=== PATIENT | male | born 1990 | race Caucasian/White ===

== ENCOUNTER 2021-10-20 12:09 | Emergency (ER) | payer OTHER, SELFPAY ==
[2021-10-20] VITALS (14 sets, daily range): BP systolic 105–150; BP diastolic 56–74; PULSE 105–121; RESP 22–23; TEMP 35.9; O2SAT 86–93; BMI 47.1
--- NOTE | 2021-10-20 12:25 | DI.RAD.S_ITS ---
PROCEDURE: XR CHEST 1V INDICATIONS: COVID + = Shortness of Breath TECHNIQUE: One view of the chest was acquired. COMPARISON: None. FINDINGS: Surgical changes and devices: None. Lungs and pleura: Abnormal interstitial type infiltrates are seen. These are seen primarily centrally. Low lung volumes are noted. This causes a crowded appearance to the lung markings and limits evaluation. No large pneumothorax or large pleural effusions are seen. Mediastinum: Mediastinal contours appear normal. Heart size is normal. Bones and chest wall: No suspicious bony lesions. Overlying soft tissues appear unremarkable. IMPRESSION: Abnormal interstitial type infiltrates are seen. Given the history of COVID positivity, this is most likely related to COVID pneumonia. However, these infiltrates are more centrally distributed than normally seen in COVID pneumonia. Please consider additional causes, including other sources atypical pneumonia and fluid overload. Dictated by: Jessee Trent M.D. on 10/20/2021 at 11:46 Approved by: Jessee Trent M.D. on 10/20/2021 at 11:48
--- NOTE | 2021-10-20 12:29 | ED.SOB ---
HPI - SOB/Dyspnea <Jacobo Rudd PA-C - Last Filed: 10/20/21 14:55> General Chief Complaint: Upper Respiratory Symptoms Stated Complaint: COVID+, Fever,Not Getting Better Time Seen by Provider: 10/20/21 12:16 History of Present Illness HPI Narrative: Patient presents to the emergency room complaining of shortness of breath with any activity. He reports that he had a recent exposure to COVID. All of the people that he came in contact with tested positive for COVID. This exposure was approximately 2 weeks ago. He has been having fever shortness of breath body aches fatigue for the past week. His spouse has been having the same symptoms but her symptoms have resolved. He continues to have shortness of breath with activity and fatigue. He has never been tested for COVID he is non vaccinated and presents for evaluation and checkup. Patient reports that he becomes nauseated with increased activity but denies any vomiting or diarrhea. He has had decreased p.o. intake of food however has maintained adequate hydration. He denies any past medical history and he denies taking any medications. 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 He also reports an occasional cough that is nonproductive that increases with activity. Related Data Previous Rx's Medication Instructions Recorded prednisolone 5 mg tablet 5 mg PO TID #14 tab 10/20/21 ([facility]) Review of Systems <Jacobo Rudd PA-C - Last Filed: 10/20/21 14:55> Review of Systems ROS Unobtainable: All systems reviewed & are unremarkable except as noted in HPI and below Constitutional Constitutional: Reports body ache(s), Denies chills, Reports fatigue, Reports fever(s), Denies frequent falls and Reports weakness Eyes Eyes: Denies change in vision, Denies eye discharge, Denies irritation and Denies loss of vision ENT Ears, Nose, Mouth, and Throat: Denies change in voice, Denies dizziness, Denies neck pain, Denies sore throat and Denies throat swelling Cardiovascular Cardiovascular: Denies chest pain, Denies irregular heart rhythm, Denies lightheadedness, Denies palpitations, Reports dyspnea, Reports dyspnea on exertion and Denies orthopnea Respiratory Respiratory: Reports cough, Reports dyspnea, Reports dyspnea on exertion and Denies wheezing Gastrointestinal Gastrointestinal: Denies abdominal pain, Denies change in bowel habits, Denies diarrhea, Reports nausea and Denies vomiting Genitourinary Genitourinary: Denies hematuria, Denies flank pain, Denies urinary incontinence and Denies urinary urgency Musculoskeletal Musculoskeletal: Denies back pain, Denies muscle weakness, Denies neck pain, Denies numbness and Denies tingling Integumentary/Breasts Skin/Breast: Denies pruritus, Denies erythema, Denies rash and Denies wounds Neurologic Neurologic: Denies behavioral changes, Denies confusion, Denies dizziness, Denies frequent falls, Denies loss of vision, Denies numbness, Denies tingling and Reports weakness Psychiatric Psychiatric: Denies anxiety, Denies behavioral changes, Denies confusion, Denies depression, Denies homicidal ideation and Denies suicidal ideation Endocrine Endocrine: Reports fatigue, Denies flushing and Denies palpitations Hematologic/Lymphatic Hematologic/Lymphatic: Denies easy bruising Allergic/Immunologic Allergic/Immunologic: Denies urticaria, Denies throat swelling and Denies wheezing Patient History <Jacobo Rudd PA-C - Last Filed: 10/20/21 14:55> Social History Smoking Status: Current some day smoker Exam <Jacobo Rudd PA-C - Last Filed: 10/20/21 14:55> Initial Vital Signs Initial Vital Signs: Vital Signs Pulse Rate 121 H 10/20/21 12:19 Pulse Oximetry 92 10/20/21 12:19 Const General: cooperative, healthy appearing and well groomed Nutritional Appearance: obese Orientation: Orientation [facility] Head: normal to inspection, normocephalic and atraumatic Ears: external ears normal Nose: external nose normal and nares normal Face and sinus: normal facial exam, sinuses nontender and face symmetric Mouth: oral mucosae normal, lip normal, tongue normal and oropharynx normal Teeth and gingiva: dentition normal Throat: posterior oropharynx normal Eyes General: appearance normal, both eyes and all related structures Pupils: PERRL Neck Neck: full ROM Resp Effort & Inspection: able to speak in complete sentences and cough Auscultation: diminished lung sounds on the left in the lower lung carroll Cardio Palpation: normal PMI Rate: regular rate Rhythm: regular rhythm GI Inspection: normal to inspection Palpation: soft and no hepatosplenomegaly Percussion: normal to percussion Auscultation: normal bowel sounds Skin General: no rashes or lesions noted Neuro General: patient alert, patient awake and patient oriented x3 Cranial Nerves: CN's II-XI intact bilaterally Cognition: normal cognition Speech: speech normal Gait: normal gait Psych Mental Status: mental status grossly normal <Luli Rowan MD - Last Filed: 10/20/21 18:16> Initial Vital Signs Initial Vital Signs: Vital Signs Pulse Rate 121 H 10/20/21 12:19 Pulse Oximetry 92 10/20/21 12:19 Course <Jacobo Rudd PA-C - Last Filed: 10/20/21 14:55> Course Course Narrative: Patient was evaluated for ongoing respiratory distress secondary to a possible COVID exposure. Patient was found to be positive for COVID chest x-ray shows evidence of a centralized pneumonia likely related as result of COVID. Patient is requiring O2 via nasal cannula 2 L to maintain adequate saturations. A discussion was made regarding admission for his COVID related symptoms versus outpatient treatment. Explained to him the requirements for O2 makes him a good candidate for admission for continued COVID related treatments not available for outpatient. After his discussion with his spouse he came to the decision that he would prefer to be discharged home with care done via outpatient. Orders Ordered: ED Orders 10/20/21 12:25 CXR [XR chest 1V] Stat 10/20/21 12:35 CBC Auto Diff [Complete Blood Count AUTO DIFF] Stat 10/20/21 12:37 COVID19 - ADMIT (DIRECTOR OF LABOR AND DELIVERY swab/PCR) Stat Influenza A & B (PCR) Stat 10/20/21 13:25 CMP [Comprehensive Metabolic Panel] Stat Discontinued Medications Sodium Chloride (Normal Saline 0.9%) 500 mls @ 1,000 mls/hr IV BOLUS ONE Stop: 10/20/21 12:54 Last Infusion: 10/20/21 13:22 Dose: 0 mls/hr Documented by: Admin: 10/20/21 12:35 Dose: 1,000 mls/hr Documented by: CAMRYN Reevaluation(s) Reevaluation #1: Patient stable maintaining adequate oxygenation on nasal cannula via 2 L. patient had questions about treatment options all questions concerns were addressed. Patient speaking with spouse regarding treatment options to admit or be discharged home. Vital Signs Vital signs: Vital Signs - 8 hr 10/20/21 12:19 10/20/21 12:26 10/20/21 12:30 Temperature 96.6 F L Pulse Rate 121 H 120 H 119 H Respiratory Rate 22 Blood Pressure 107/63 107/63 Pulse Oximetry 92 88 L 93 10/20/21 12:32 10/20/21 12:47 10/20/21 13:00 Temperature Pulse Rate 116 H 118 H Respiratory Rate Blood Pressure 128/59 L 130/59 L Pulse Oximetry 93 91 86 L 10/20/21 13:30 10/20/21 13:31 10/20/21 14:00 Temperature Pulse Rate 115 H 108 H 111 H Respiratory Rate 22 Blood Pressure 138/63 Pulse Oximetry 92 92 92 10/20/21 14:01 10/20/21 14:30 10/20/21 15:00 Temperature Pulse Rate 112 H 110 H 110 H Respiratory Rate 23 Blood Pressure 150/74 H Pulse Oximetry 92 92 92 10/20/21 15:01 10/20/21 15:30 Temperature Pulse Rate 109 H 105 H Respiratory Rate 23 22 Blood Pressure 105/56 L Pulse Oximetry 91 92 <Luli Rowan MD - Last Filed: 10/20/21 18:16> Orders Ordered: ED Orders 10/20/21 12:25 CXR [XR chest 1V] Stat 10/20/21 12:35 CBC Auto Diff [Complete Blood Count AUTO DIFF] Stat 10/20/21 12:37 COVID19 - ADMIT (DIRECTOR OF LABOR AND DELIVERY swab/PCR) Stat Influenza A & B (PCR) Stat 10/20/21 13:25 CMP [Comprehensive Metabolic Panel] Stat Discontinued Medications Sodium Chloride (Normal Saline 0.9%) 500 mls @ 1,000 mls/hr IV BOLUS ONE Stop: 10/20/21 12:54 Last Infusion: 10/20/21 13:22 Dose: 0 mls/hr Documented by: Admin: 10/20/21 12:35 Dose: 1,000 mls/hr Documented by: CAMRYN Vital Signs Vital signs: Vital Signs - 8 hr 10/20/21 12:19 10/20/21 12:26 10/20/21 12:30 Temperature 96.6 F L Pulse Rate 121 H 120 H 119 H Respiratory Rate 22 Blood Pressure 107/63 107/63 Pulse Oximetry 92 88 L 93 10/20/21 12:32 10/20/21 12:47 10/20/21 13:00 Temperature Pulse Rate 116 H 118 H Respiratory Rate Blood Pressure 128/59 L 130/59 L Pulse Oximetry 93 91 86 L 10/20/21 13:30 10/20/21 13:31 10/20/21 14:00 Temperature Pulse Rate 115 H 108 H 111 H Respiratory Rate 22 Blood Pressure 138/63 Pulse Oximetry 92 92 92 10/20/21 14:01 10/20/21 14:30 10/20/21 15:00 Temperature Pulse Rate 112 H 110 H 110 H Respiratory Rate 23 Blood Pressure 150/74 H Pulse Oximetry 92 92 92 10/20/21 15:01 10/20/21 15:30 Temperature Pulse Rate 109 H 105 H Respiratory Rate 23 22 Blood Pressure 105/56 L Pulse Oximetry 91 92 MDM - SOB/Dyspnea <Jacobo Rudd PA-C - Last Filed: 10/20/21 14:55> Differential Diagnosis Differential diagnosis: Likely other Lab Data Result diagrams: 10/20/21 12:35 10/20/21 13:25 Labs: Lab Results 10/20/21 10/20/21 10/20/21 Range/Units 12:35 12:37 13:25 WBC 3.4 L (4.5-11.0) X10^3/uL RBC 5.09 (4.5-5.9) X10^6/uL Hgb 13.8 (13.5-17.5) g/dL Hct 40.4 L (41-53) % MCV 79.5 L (80-100) fL MCH 27.1 (26-34) PG MCHC 34.1 (30-36) % RDW 14.4 (11.6-14.8) % Plt Count 211 (150-400) X10^3/uL Neut % (Auto) 64.1 (50-75) % Lymph % (Auto) 26.7 (25-40) % [place] % (Auto) 8.7 (3-14) % Eos % (Auto) 0.0 L (2-4) % Baso % (Auto) 0.5 (0-2) % Neut # (Auto) 2200 (0615-9806) /uL Lymph # (Auto) 900 L (9710-2602) /uL [place] # (Auto) 300 (0-900) /uL Eos # (Auto) 0 (0-450) /uL Baso # (Auto) 0 (0-100) /uL Sodium 131 L (137-145) mmol/L Potassium 3.7 (3.4-5.1) mmol/L Chloride 94 L (98-107) mmol/L Carbon Dioxide 31 (22-32) mmol/L BUN 17 (9-20) mg/dL Creatinine 0.66 (0.66-1.25) mg/dL Estimated GFR > 60.0 (>60) mL/min BUN/Creatinine Ratio 25.8 H (6-22) Glucose 111 H (70-100) mg/dL Calcium 8.3 L (8.4-10.2) mg/dL Total Bilirubin 0.5 (0.2-1.3) mg/dL AST 74 H (17-59) IU/L ALT 35 (<50) IU/L Alkaline Phosphatase 52 (38-126) U/L Total Protein 7.0 (6.3-8.2) g/dL Albumin 3.9 (3.5-5.0) g/dL Globulin 3.1 (1.7-4.1) g/dL Albumin/Globulin Ratio 1.3 (1.0-2.8) SARS-CoV-2 (PCR) Positive H (Negative) Influenza A (RT-PCR) Flu a negative (NEGATIVE) Influenza B (RT-PCR) Flu b negative (NEGATIVE) Imaging Data Chest x-ray: Radiologist's Impression: PROCEDURE:? XR CHEST 1V ? INDICATIONS:? COVID + = Shortness of Breath ? TECHNIQUE:? One view of the chest was acquired.? ? COMPARISON:? None. ? FINDINGS:? ? Surgical changes and devices:? None.? ? Lungs and pleura:? Abnormal interstitial type infiltrates are seen.? These are seen primarily centrally. Low lung volumes are noted. This causes a crowded appearance to the lung markings and limits evaluation.? No large pneumothorax or large pleural effusions are seen.? ? Mediastinum:? Mediastinal contours appear normal.? Heart size is normal.? ? Bones and chest wall:? No suspicious bony lesions.? Overlying soft tissues appear unremarkable.? IMPRESSION:? Abnormal interstitial type infiltrates are seen.? Given the history of COVID positivity, this is most likely related to COVID pneumonia.? However, these infiltrates are more centrally distributed than normally seen in COVID pneumonia.? Please consider additional causes, including other sources atypical pneumonia and fluid overload. ? ? Dictated by: Jessee Trent M.D. on 10/20/2021 at 11:46 ? ? Approved by: Jessee Trent M.D. on 10/20/2021 at 11:48?? MDM Narrative Medical decision making narrative: Patient was evaluated for cough and shortness of breath of which he had concerns of COVID related illness. He states that his symptoms started a week ago and have gotten progressively worse. He reports a recent exposure to some close friends tested positive for COVID and his spouse also had similar symptoms but hers have resolved. He never got tested and is not vaccinated and presents to be evaluated. His room air O2 sat was 88% any increased to about 92% with 2 L via nasal cannula. His workup was consistent for COVID and COVID related pneumonia. I spoke with him regarding admission versus outpatient treatment. He spoke with his spouse and they agree that outpatient treatment would be the best option for him. I spoke to him about outpatient steroids and home O2 options of which he seemed agreeable I also spoke with him about the need for returning to the ED for further evaluation if his symptoms were to worsen or deteriorate. <Luli Rowan MD - Last Filed: 10/20/21 18:16> Lab Data Labs: Lab Results 10/20/21 10/20/21 10/20/21 Range/Units 12:35 12:37 13:25 WBC 3.4 L (4.5-11.0) X10^3/uL RBC 5.09 (4.5-5.9) X10^6/uL Hgb 13.8 (13.5-17.5) g/dL Hct 40.4 L (41-53) % MCV 79.5 L (80-100) fL MCH 27.1 (26-34) PG MCHC 34.1 (30-36) % RDW 14.4 (11.6-14.8) % Plt Count 211 (150-400) X10^3/uL Neut % (Auto) 64.1 (50-75) % Lymph % (Auto) 26.7 (25-40) % [place] % (Auto) 8.7 (3-14) % Eos % (Auto) 0.0 L (2-4) % Baso % (Auto) 0.5 (0-2) % Neut # (Auto) 2200 (9035-6368) /uL Lymph # (Auto) 900 L (2790-6350) /uL [place] # (Auto) 300 (0-900) /uL Eos # (Auto) 0 (0-450) /uL Baso # (Auto) 0 (0-100) /uL Sodium 131 L (137-145) mmol/L Potassium 3.7 (3.4-5.1) mmol/L Chloride 94 L (98-107) mmol/L Carbon Dioxide 31 (22-32) mmol/L BUN 17 (9-20) mg/dL Creatinine 0.66 (0.66-1.25) mg/dL Estimated GFR > 60.0 (>60) mL/min BUN/Creatinine Ratio 25.8 H (6-22) Glucose 111 H (70-100) mg/dL Calcium 8.3 L (8.4-10.2) mg/dL Total Bilirubin 0.5 (0.2-1.3) mg/dL AST 74 H (17-59) IU/L ALT 35 (<50) IU/L Alkaline Phosphatase 52 (38-126) U/L Total Protein 7.0 (6.3-8.2) g/dL Albumin 3.9 (3.5-5.0) g/dL Globulin 3.1 (1.7-4.1) g/dL Albumin/Globulin Ratio 1.3 (1.0-2.8) SARS-CoV-2 (PCR) Positive H (Negative) Influenza A (RT-PCR) Flu a negative (NEGATIVE) Influenza B (RT-PCR) Flu b negative (NEGATIVE) Discharge Plan Departure Patient Disposition: Home Clinical Impression: COVID-19, Pneumonia due to COVID-19 virus, Hypoxia Instructions: DI for COVID-19 (Suspected or Confirmed ), Coronavirus Disease 2019, Can COVID-19 be prevented? Activity Restrictions/Additional Instructions: Quarantine at home until symptoms have resolved. Wear a mask at all times around people. Wash her hands frequently throughout the day. Patient will require home O2 via nasal cannula at 2 L as a result of his COVID related pneumonia and ongoing shortness of breath. Prescriptions: New [place]ipred 5 mg tablet 5 mg PO TID Qty: 14 0RF Rx Instructions: take 1 tablet PO 4 times on day one, then 1 tablet 3 times on day two and three, then 1 tablet two times per day on day four and 1 tablet on day 5. <Luli Rowan MD - Last Filed: 10/20/21 18:16> Cosign ED Attending Cosignature Attestation: I was immediately available in the department for consultation throughout this patient's visit. I agree with documentation as above. Luli Rowan MD
[2021-10-20] MEDS: SODIUM CHLORIDE 0.9% 500 ML 1000 ML IV (12:35)
[2021-10-20 12:49] LABS: Add Manual Diff / Slide Review NO; Basophils Absolute Auto 0 /uL (0-100); Basophils Percent Auto 0.5 % (0-2); Eosinophils Absolute Auto 0 /uL (0-450); Hematocrit 40.4 % (41-53); Hemoglobin 13.8 g/dL (13.5-17.5); Lymphocytes Absolute Auto 900 /uL (1100-4500); Lymphocytes Percent Auto 26.7 % (25-40); Mean Corpuscular HGB Conc 34.1 % (30-36); Mean Corpuscular Hemoglobin 27.1 PG (26-34); Mean Corpuscular Volume 79.5 fL (80-100); Monocytes Absolute Auto 300 /uL (0-900); Monocytes Percent Auto 8.7 % (3-14); Neutrophils Absolute Auto 2200 /uL (1500-7000); Neutrophils Percent Auto 64.1 % (50-75); Platelet Count 211 X10^3/uL (150-400); Red Blood Cell Count 5.09 X10^6/uL (4.5-5.9); Red Cell Distribution Width 14.4 % (11.6-14.8); White Blood Cell Count 3.4 X10^3/uL (4.5-11.0)
[2021-10-20 13:35] LABS: Influenza A - CEPHEID Flu A NEGATIVE (NEGATIVE); Influenza B - CEPHEID Flu B NEGATIVE (NEGATIVE)
[2021-10-20 13:43] LABS: COVID19 - ADMIT (NP swab/PCR) POSITIVE (Negative)
[2021-10-20 14:02] LABS: Alanine Aminotransferase 35 IU/L (<50); Albumin 3.9 g/dL (3.5-5.0); Albumin Globulin Ratio 1.3 (1.0-2.8); Alkaline Phosphatase 52 U/L (38-126); Aspartate Aminotransferase 74 IU/L (17-59); BUN Creatinine Ratio 25.8 (6-22); Bilirubin Total 0.5 mg/dL (0.2-1.3); Blood Urea Nitrogen 17 mg/dL (9-20); Calcium 8.3 mg/dL (8.4-10.2); Carbon Dioxide 31 mmol/L (22-32); Chloride 94 mmol/L (98-107); Estimated Glomerular Filt Rate > 60.0 mL/min (>60); Globulin 3.1 g/dL (1.7-4.1); Glucose 111 mg/dL (70-100); HEMOLYSIS 17 (0-50); Potassium 3.7 mmol/L (3.4-5.1); Sodium 131 mmol/L (137-145)
== END 2021-10-20 15:45 | disposition home or self-care (01) ==
PROVIDERS: Emergency Provider Physician Assistant
DX: U07.1 COVID-19 (principal); J12.82 Pneumonia due to coronavirus disease 2019; R09.02 Hypoxemia; F17.200 Nicotine dependence, unspecified, uncomplicated
CPT/HCPCS: 36415; 71045; 80053; 85025; 87502; 87635; 96360; 99284; C9803